=== PATIENT | female | born 1960 | race Caucasian/White ===

== ENCOUNTER 2019-11-12 02:16 | Emergency (ER) | payer MEDICARE, OTHER ==
[~2019-11-12] VITALS: Ht 160 cm; Wt 54.4 kg
[~2019-11-12 02:16] MED LIST: CLIN300 PO; HYDACE5 PO; IBUP800 PO; PENVK500 PO; SULTRIDS PO
[2019-11-12 02:57] LABS: BASOPHILS ABSOLUTE AUTO 0.02 K/mm3 (0.00-0.23); BASOPHILS PERCENT AUTO 0 % (0-2); EOSINOPHILS ABSOLUTE AUTO 0.03 K/mm3 (0.00-0.68); EOSINOPHILS PERCENT AUTO 0 % (0-6); Hematocrit 43.4 % (33.0-51.0); Hemoglobin 13.9 g/dL (11.5-16.0); IMMATURE GRAN ABSOLUTE AUTO 0.04 K/mm3 (0.00-0.10); IMMATURE GRAN PERCENT AUTO 0 % (0-1); LYMPHOCYTES ABSOLUTE AUTO 1.07 K/mm3 (0.84-5.20); LYMPHOCYTES PERCENT AUTO 10 % (21-46); MONOCYTES ABSOLUTE AUTO 1.33 K/mm3 (0.16-1.47); MONOCYTES PERCENT AUTO 12 % (4-13); Mean Corpuscular HGB 29.9 pg (26.0-34.0); Mean Corpuscular Volume 93 fL (80-100); Mean Platelet Volume 10.5 fL (9.1-12.4); NEUTROPHILS ABSOLUTE AUTO 8.68 K/mm3 (1.96-9.15); NEUTROPHILS PERCENT AUTO 78 % (41-73); Platelet Count 194 K/mm3 (150-400); RDW Standard Deviation 41.4 fL (35.1-46.3); Red Blood Cell Count 4.65 M/mm3 (3.80-5.20); White Blood Cell Count 11.17 K/mm3 (4.00-11.30)
[2019-11-12 03:08] LABS: Influenza A Negative (NEGATIVE); Influenza B Negative (NEGATIVE)
[2019-11-12 03:15] LABS: Alanine Aminotransfer (ALT/SGP 13 U/L (12-78); Albumin, Blood 2.9 g/dL (3.4-5.0); Albumin/Globulin Ratio 0.7 (0.8-1.8); Alk Phos 93 U/L (50-136); Anion Gap 6 mmol/L (6-16); Aspartate Aminotrans (AST/SGOT 8 U/L (12-37); Bilirubin, Total 0.5 mg/dL (0.1-1.0); Blood Urea Nitrogen 12 mg/dL (8-24); Bun/Creatinine Ratio 14.4 (12.0-20.0); CO2, Blood 28 mmol/L (21-32); Calcium, Blood 8.4 mg/dL (8.5-10.1); Chloride, Blood 102 mmol/L (98-108); Creatinine, Blood 0.83 mg/dL (0.40-1.00); Globulin, Blood 4.3 g/dL (2.2-4.0); Glomerular Filtration Rate >60 (60-); Glucose, Blood 104 mg/dL (70-99); Potassium, Blood 3.6 mmol/L (3.5-5.5); Sodium, Blood 136 mmol/L (136-145); Total Protein, Blood 7.2 g/dL (6.4-8.2)
[2019-11-12] MEDS ORDERED: Zithromax250 MG PO (04:52)
== END 2019-11-12 05:01 | disposition home or self-care (01) ==
LOC: ER 02:16
PROVIDERS: Emergency Medicine
DX: J18.9 Pneumonia, unspecified organism (principal); F17.200 Nicotine dependence, unspecified, uncomplicated
CPT/HCPCS: 36415; 71046; 80053; 85025; 87804; 93005; 93010; 99284-25

== ENCOUNTER 2022-01-23 00:43 | Day surgery (SDC) | payer MEDICARE, OTHER ==
[~2022-01-23 00:43] MED LIST changes: +Zithromax250 MG PO
[2022-01-24] MEDS ORDERED: CEFTRIAXONE2 G1 IV (17:20)
== END 2022-01-23 15:00 | disposition home or self-care (01) ==
LOC: ATC 00:43
DX: R78.81 Bacteremia (principal); B95.3 Streptococcus pneumoniae as the cause of diseases classified elsewhere
CPT/HCPCS: 96374; J0696

== ENCOUNTER 2022-01-24 15:56 | Day surgery (SDC) | payer MEDICARE, OTHER ==
[2022-01-24] MEDS ORDERED: CEFTRIAXONE2 G1 IV (17:20)
== END 2022-01-24 16:15 | disposition home or self-care (01) ==
LOC: ATC 15:56
DX: R78.81 Bacteremia (principal); B95.3 Streptococcus pneumoniae as the cause of diseases classified elsewhere
CPT/HCPCS: J0696

== ENCOUNTER 2022-01-25 02:27 | Day surgery (SDC) | payer MEDICARE, OTHER ==
[~2022-01-25 02:27] MED LIST changes: +CEFTRIAXONE2 G1 IV
== END 2022-01-25 14:32 | disposition home or self-care (01) ==
LOC: ATC 02:27
DX: R78.81 Bacteremia (principal); B95.3 Streptococcus pneumoniae as the cause of diseases classified elsewhere
CPT/HCPCS: 96374; J0696

== ENCOUNTER 2022-01-27 00:45 | Day surgery (SDC) | payer MEDICARE, OTHER ==
--- NOTE | 2022-01-27 15:24 | NUR ---
ATTEMPTED TO DRAW BLOOD FROM IV AND 2 TIMES FROM R ARM. UNABLE TO DRAW BLOOD. ENC PT TO DRINK PLENTY OF WATER TOMORROW BEFORE COMING FOR ANTIBIOTIC.
== END 2022-01-27 15:15 | disposition home or self-care (01) ==
LOC: ATC 00:45
DX: R78.81 Bacteremia (principal); B95.3 Streptococcus pneumoniae as the cause of diseases classified elsewhere
CPT/HCPCS: J0696

== ENCOUNTER 2022-01-28 00:50 | Day surgery (SDC) | payer MEDICARE, OTHER ==
[2022-01-28 15:38] LABS: BASOPHILS ABSOLUTE AUTO 0.07 K/mm3 (0.00-0.23); BASOPHILS PERCENT AUTO 1 % (0-2); EOSINOPHILS ABSOLUTE AUTO 0.21 K/mm3 (0.00-0.68); EOSINOPHILS PERCENT AUTO 2 % (0-6); Hematocrit 42.5 % (33.0-51.0); Hemoglobin 13.1 g/dL (11.5-16.0); IMMATURE GRAN ABSOLUTE AUTO 0.03 K/mm3 (0.00-0.10); IMMATURE GRAN PERCENT AUTO 0 % (0-1); LYMPHOCYTES PERCENT AUTO 11 % (21-46); MONOCYTES ABSOLUTE AUTO 1.05 K/mm3 (0.16-1.47); MONOCYTES PERCENT AUTO 12 % (4-13); Mean Corpuscular HGB 29.3 pg (26.0-34.0); Mean Corpuscular HGB Conc 30.8 g/dL (31.5-36.5); Mean Corpuscular Volume 95 fL (80-100); Mean Platelet Volume 9.6 fL (9.1-12.4); NEUTROPHILS ABSOLUTE AUTO 6.73 K/mm3 (1.96-9.15); NEUTROPHILS PERCENT AUTO 74 % (41-73); Platelet Count 382 K/mm3 (150-400); RDW Coefficient Variation 12.8 % (11.7-14.2); RDW Standard Deviation 45.3 fL (35.1-46.3); Red Blood Cell Count 4.47 M/mm3 (3.80-5.20); White Blood Cell Count 9.09 K/mm3 (4.00-11.30)
[2022-01-28 16:55] LABS: Alanine Aminotransfer (ALT/SGP 10 U/L (12-78); Albumin, Blood 2.2 g/dL (3.4-5.0); Albumin/Globulin Ratio 0.5 (0.8-1.8); Alk Phos 73 U/L (50-136); Anion Gap 7 mmol/L (6-16); Aspartate Aminotrans (AST/SGOT 12 U/L (12-37); Bilirubin, Total 0.2 mg/dL (0.1-1.0); Blood Urea Nitrogen 5 mg/dL (8-24); Bun/Creatinine Ratio 6.3 (12.0-20.0); CO2, Blood 28 mmol/L (21-32); Calcium, Blood 8.4 mg/dL (8.5-10.1); Chloride, Blood 107 mmol/L (98-108); Creatinine, Blood 0.79 mg/dL (0.40-1.00); Globulin, Blood 4.7 g/dL (2.2-4.0); Glomerular Filtration Rate >60 (60-); Glucose, Blood 101 mg/dL (70-99); Potassium, Blood 3.2 mmol/L (3.5-5.5); Sodium, Blood 142 mmol/L (136-145); Total Protein, Blood 6.9 g/dL (6.4-8.2)
== END 2022-01-28 14:53 | disposition home or self-care (01) ==
LOC: ATC 00:50
PROVIDERS: Internal Medicine Infectious Disease
DX: R78.81 Bacteremia (principal); B95.3 Streptococcus pneumoniae as the cause of diseases classified elsewhere
CPT/HCPCS: 80053; 85025; J0696

== ENCOUNTER 2022-01-30 00:45 | Day surgery (SDC) | payer MEDICARE, OTHER | END 2022-01-30 22:53 | disposition home or self-care (01) | LOC: ATC 00:45 | DX: R78.81 Bacteremia (principal); B95.3 Streptococcus pneumoniae as the cause of diseases classified elsewhere | CPT/HCPCS: J0696 ==

== ENCOUNTER 2022-01-31 15:21 | Day surgery (SDC) | payer MEDICARE, OTHER ==
--- NOTE | 2022-01-31 16:23 | NUR ---
PT DISCHARGED IN CARE OF DAUGHTER. SENT PT WITH A BAG OF CRUSHED ICE. EXPLAINED TO PT NOT TO PUT DIRECTLY ON ARM, USE A WASHCLOTH OR MARCO. DAUGHTER ASKING TO GIVE HER MOTHER SOME TYLENOL OR ADVIL FOR PAIN IN L ARM. ARM WITH GOO PULSE, FINGERS STIFF, ROM IS SLOW. IN [place] DID A US TO LOOK FOR CLOT, WITH NO DVT NOTED. DR'S OFFICE GAVE PT TWO IM SHOTS OF ROCEPHIN. PT ASKED FOR THE SAME AND I EXPLAINED THAT I DID NOT GET NEW ORDERS.
== END 2022-01-31 15:52 | disposition home or self-care (01) ==
LOC: ATC 15:21
DX: R78.81 Bacteremia (principal); B95.3 Streptococcus pneumoniae as the cause of diseases classified elsewhere
CPT/HCPCS: J0696

== ENCOUNTER 2022-02-06 15:43 | Emergency (ER) | payer MEDICARE, OTHER ==
[~2022-02-06] VITALS: Ht 162.6 cm; Wt 59.0 kg
== END 2022-02-06 18:03 | disposition home or self-care (01) ==
LOC: ER 15:43
DX: M25.461 Effusion, right knee (principal); M25.561 Pain in right knee; F17.200 Nicotine dependence, unspecified, uncomplicated
CPT/HCPCS: 73562-RT